=== PATIENT | female | born 1995 | race Caucasian/White ===

== ENCOUNTER 2017-07-05 10:14 | Emergency (ER) | payer MEDICAID ==
[~2017-07-05] VITALS: Ht 165.1 cm; Wt 54.5 kg
[2017-07-05 11:08] VITALS: BP 103/63
== END 2017-07-05 11:57 ==
LOC: ED 10:53
DX: T78.40XA Allergy, unspecified, initial encounter (principal)
CPT/HCPCS: 99285; J7512; 99283

== ENCOUNTER 2019-11-20 20:04 | Emergency (ER) | payer MEDICAID ==
[~2019-11-20] VITALS: Ht 165.1 cm; Wt 60.4 kg
--- NOTE | 2019-11-20 20:43 | NUR ---
PT IN ROOM, PLACED HALAL BUTCHER AND VITALS SIGNS MONITORS. PT STATES "I RELAPSED AFTER 7 MONTHS SOBER, I INJECTED HEROIN AND METH".
[2019-11-20] MEDS ORDERED: SODIUM CHLORIDE 0.9% 1,000ML IVBOLUS ONE (21:00)
[2019-11-20] MEDS ORDERED: DIPHENHYDRAMINE 25 MG CAPSULE PO ONE (21:00)
[2019-11-20] MEDS ORDERED: SODIUM CHLORIDE FLUSH 10ML SYR IVF ONE (21:00)
[2019-11-20] MEDS ORDERED: DIPHENHYDRAMINE 25 MG CAPSULE ONE (21:01)
[2019-11-20] MEDS ORDERED: LORazepam 2 MG/ML, 1ML ONE (22:14)
[2019-11-20] MEDS ORDERED: LORazepam 2 MG/ML, 1ML IVPush ONE (22:30)
--- NOTE | 2019-11-20 23:23 | NUR ---
ON [place] CONTINUES TO PICK AT SKIN, FRIEND AT BEDSIDE. SAFETY FALL PRECAUTIONS IN PLACE.
--- NOTE | 2019-11-21 00:20 | NUR ---
SLEEPING INTERMITTENTLY, FRIEND AT BEDSIDE. SAFETY FALL PRECUATIONS IN PLACE.
--- NOTE | 2019-11-21 02:42 | NUR ---
SLEEPING IN NO ACUTE DISTRESS EVEN AND UNLABORED RESPIRATIONS. FRIEND AT BEDSIDE.
[2019-11-21 02:49] VITALS: BP 123/62
== END 2019-11-21 02:55 | disposition home or self-care (01) ==
LOC: ED 22:54
DX: F10.129 Alcohol abuse with intoxication, unspecified (principal); F11.129 Opioid abuse with intoxication, unspecified; F15.11 Other stimulant abuse, in remission; F41.9 Anxiety disorder, unspecified; R00.0 Tachycardia, unspecified; Y90.9 Presence of alcohol in blood, level not specified
CPT/HCPCS: 93005; 96361; 96374; 99285; J2060; J7030; Q0163